=== PATIENT | male | born 2000 | race Two or more races ===

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

== ENCOUNTER 2023-04-18 20:28 | Inpatient (IN) | payer MEDICAID ==
[~2023-04-18] VITALS: Ht 172.7 cm; Wt 74.0 kg
[2023-04-18] MEDS ORDERED: DexAMETHasone SOD PHOS 10MG/1ML VIAL INJ IM ONE (20:45)
[2023-04-18] MEDS ORDERED: ALBUTEROL SULF 2.5 MG/0.5ML(0.5%) NEB SOLN NEB ONE ×3 (20:45→22:15)
[2023-04-18] MEDS ORDERED: IPRATROPIUM BROM 0.5 MG/2.5ML INH SOL NEB ONE ×3 (20:45→22:15)
[2023-04-18] MEDS ORDERED: AZITHROMYCIN 500MG/ 250ML 250 ML IV ONE (21:30)
[2023-04-18] MEDS ORDERED: cefTRIAXone 1GM/50ML D5W 50 ML IV ONE (21:30)
[2023-04-18] MEDS ORDERED: MAGNESIUM SULFATE 1GM/100ML 100 ML IV ONE (21:30)
[2023-04-18] MEDS ORDERED: ALBUTEROL SULF 2.5 MG/0.5ML(0.5%) NEB SOLN ONE (21:52)
[2023-04-18] MEDS ORDERED: IPRATROPIUM BROM 0.5 MG/2.5ML INH SOL ONE (21:53)
[2023-04-18] MEDS ORDERED: diphenhdrAMINE HCL 50 MG/1 ML VL IV ONE (22:00)
[2023-04-18 22:08] LABS: Hemoglobin 17.5 g/dL (13.5-17.5); Mean Corpuscular Hemoglobin 30.8 pg (28.0-32.0); Mean Corpuscular Hgb Conc. 33.6 g/dL (32.0-36.0); Mean Corpuscular Volume 91.7 fL (80.0-100.0); Red Blood Cells 5.67 10^6/uL (4.5-5.90); Red Cell Distribution Width 13.5 % (11.8-14.3); White Blood Cell 14.4 10^3/uL (4.4-10.8)
[2023-04-18 22:09] VITALS: PULSE 119; RESP 22; O2SAT 100
[2023-04-18 22:14] LABS: Alanine Aminotransferase 27 U/L (7-40); Albumin 5.1 g/dL (3.2-4.8); Alkaline Phosphatase 84 U/L (46-116); Anion Gap 7 (5-15); Aspartate Aminotransferase 25 U/L (13-40); BUN/Creatinine Ratio 8.3 (10.0-20.0); Blood Urea Nitrogen 9 mg/dL (9-23); Calcium 9.6 mg/dL (8.5-10.1); Carbon Dioxide 25 mmol/L (20-30); Chloride 109 mmol/L (98-107); Glucose 93 mg/dL (74-106); Potassium 4.7 mmol/L (3.5-5.1); Sodium 141 mmol/L (136-145)
[2023-04-18 22:15] LABS: Total Protein 8.3 g/dL (5.7-8.2)
[2023-04-18 22:20] LABS: Band Neutrophils % (manual) 0; Basophils % (manual) 0 (0.0-2.0); Blast Cells 0; Metamyelocytes % 0; Myelocytes % 0; Promyelocytes % 0; Reactive Lymphocytes 0
[2023-04-18 22:21] LABS: Base Excess -6.2 mmol/L (-2.0-2.0)
[2023-04-18 22:35] LABS: Eosinophils % (manual) 18 (0-7); Lymphocytes % (manual) 22 (10.0-50.0); Monocytes % (manual) 5 (0-12); Platelet Estimate Adequate; RBC Morphology Normal
[2023-04-19] VITALS (7 sets, daily range): BP systolic 135–168; BP diastolic 83–88; PULSE 67–112; RESP 16–24; TEMP 97.8–98.2; O2SAT 94–100
[2023-04-19] MEDS ORDERED: ACETAMINOPHEN 325 MG TAB PO PRN (00:15)
[2023-04-19] MEDS ORDERED: HYDROcodone-ACET 5/325MG TAB PO PRN (00:15)
[2023-04-19] MEDS ORDERED: NITROGLYCERIN 0.4 MG SL TAB SL PRN (00:15)
[2023-04-19] MEDS ORDERED: ONDANSETRON HCL 4 MG/2 ML VIAL IV PRN (00:15)
[2023-04-19] MEDS ORDERED: DOCUSATE SOD 100 MG CAP PO PRN (00:15)
[2023-04-19] MEDS ORDERED: MORPHINE SULFATE INJ 2 MG/ml SYRG IV PRN (00:15)
[2023-04-19] MEDS: SODIUM CHLOR 0.9% PF (SALINE LOCK) 10ML VIAL/SYR IV SCH ×3 (05:26→21:55)
[2023-04-19 05:34] LABS: Basophils # (auto) 0 10 ^3/uL (0-0.2); Basophils % (auto) 0.1 % (0.0-2.0); Eosinophils # (auto) 0 10 ^3/uL (0-0.8); Eosinophils % (auto) 0.1 % (0.0-7.0); Hematocrit 47.1 % (41.0-53.0); Hemoglobin 16.5 g/dL (13.5-17.5); Lymphocytes # (auto) 0.6 10 ^3/uL (0.4-5.4); Lymphocytes % (auto) 9.8 % (10.0-50.0); Mean Corpuscular Hemoglobin 31.8 pg (28.0-32.0); Mean Corpuscular Hgb Conc. 35.1 g/dL (32.0-36.0); Mean Corpuscular Volume 90.5 fL (80.0-100.0); Monocytes # (auto) 0.1 10 ^3/uL (0-1.3); Monocytes % (auto) 1.1 % (0.0-12.0); Neutrophils # (auto) 5.5 10 ^3/uL (1.6-8.6); Neutrophils % (auto) 88.9 % (37.0-80.0); Red Cell Distribution Width 13.5 % (11.8-14.3); White Blood Cell 6.2 10^3/uL (4.4-10.8)
[2023-04-19 05:37] LABS: Alanine Aminotransferase 24 U/L (7-40); Albumin 4.9 g/dL (3.2-4.8); Alkaline Phosphatase 79 U/L (46-116); Anion Gap 10 (5-15); Aspartate Aminotransferase 22 U/L (13-40); BUN/Creatinine Ratio 10.4 (10.0-20.0); Bilirubin, Total 0.6 mg/dL (0.2-1.0); Blood Urea Nitrogen 11 mg/dL (9-23); Calcium 9.5 mg/dL (8.7-10.4); Carbon Dioxide 24 mmol/L (20-30); Chloride 106 mmol/L (98-107); Glucose 188 mg/dL (74-106); Potassium 4.2 mmol/L (3.5-5.1); Sodium 140 mmol/L (136-145); Total Protein 7.8 g/dL (5.7-8.2)
[2023-04-19] MEDS ORDERED: cefTRIAXone 1GM/50ML D5W 50 ML IV SCH (09:00)
[2023-04-19] MEDS ORDERED: FAMOTIDINE (10MG/ML) 2ML VL IV SCH (10:00)
[2023-04-19] MEDS ORDERED: DexAMETHasone SOD PHOS 10MG/1ML VIAL INJ IV SCH (10:00)
[2023-04-19] MEDS ORDERED: AZITHROMYCIN 500MG/ 250ML 250 ML IV SCH (10:00)
[2023-04-19] MEDS ORDERED: methylPREDNISolone SOD SUCC 40 MG/ML VL IM ONE (12:00)
[2023-04-19] MEDS ORDERED: IOHEXOL 300 MG/ML 100ML BOTTLE IJ ONE (12:21)
[2023-04-19] MEDS: IPRATROPIUM BROM 0.5 MG/2.5ML INH SOL NEB PRN (19:00)
[2023-04-19] MEDS: ALBUTEROL SULF 2.5 MG/0.5ML(0.5%) NEB SOLN NEB PRN (19:00)
[2023-04-19] MEDS: methylPREDNISolone SOD SUCC 40 MG/ML VL IV SCH (22:02)
[2023-04-20] MEDS ORDERED: ALBUAER3 IN ×2 (00:30→11:28)
[2023-04-20 05:00] VITALS: BP 125/71; PULSE 84; RESP 16; TEMP 97.9; O2SAT 94
[2023-04-20 05:41] LABS: Basophils # (auto) 0 10 ^3/uL (0-0.2); Basophils % (auto) 0.1 % (0.0-2.0); Eosinophils # (auto) 0 10 ^3/uL (0-0.8); Hematocrit 51.6 % (41.0-53.0); Hemoglobin 17.6 g/dL (13.5-17.5); Lymphocytes # (auto) 1.2 10 ^3/uL (0.4-5.4); Lymphocytes % (auto) 6.9 % (10.0-50.0); Mean Corpuscular Hemoglobin 31.4 pg (28.0-32.0); Mean Corpuscular Hgb Conc. 34.1 g/dL (32.0-36.0); Mean Corpuscular Volume 92.2 fL (80.0-100.0); Monocytes # (auto) 0.6 10 ^3/uL (0-1.3); Monocytes % (auto) 3.5 % (0.0-12.0); Neutrophils # (auto) 15.9 10 ^3/uL (1.6-8.6); Neutrophils % (auto) 89.5 % (37.0-80.0); Red Blood Cells 5.59 10^6/uL (4.5-5.90); Red Cell Distribution Width 13.2 % (11.8-14.3); White Blood Cell 17.7 10^3/uL (4.4-10.8)
[2023-04-20] MEDS: SODIUM CHLOR 0.9% PF (SALINE LOCK) 10ML VIAL/SYR IV SCH (05:59)
[2023-04-20 06:29] LABS: Alanine Aminotransferase 22 U/L (7-40); Albumin 5.1 g/dL (3.2-4.8); Alkaline Phosphatase 87 U/L (46-116); Anion Gap 11 (5-15); Aspartate Aminotransferase 27 U/L (13-40); BUN/Creatinine Ratio 9.2 (10.0-20.0); Bilirubin, Total 0.7 mg/dL (0.2-1.0); Blood Urea Nitrogen 9 mg/dL (9-23); Calcium 9.7 mg/dL (8.7-10.4); Carbon Dioxide 20 mmol/L (20-30); Chloride 105 mmol/L (98-107); Glucose 134 mg/dL (74-106); Sodium 136 mmol/L (136-145); Total Protein 8.3 g/dL (5.7-8.2)
[2023-04-20] MEDS: ALBUTEROL SULF 2.5 MG/0.5ML(0.5%) NEB SOLN NEB PRN (06:44)
[2023-04-20] MEDS: IPRATROPIUM BROM 0.5 MG/2.5ML INH SOL NEB PRN (06:44)
[2023-04-20 06:49] VITALS: PULSE 90; RESP 16; O2SAT 88
[2023-04-20 06:59] VITALS: PULSE 87; RESP 16; O2SAT 94
[2023-04-20 08:00] VITALS: PULSE 77; RESP 18; O2SAT 99
[2023-04-20 10:00] VITALS: O2SAT 98
[2023-04-20] MEDS: methylPREDNISolone SOD SUCC 40 MG/ML VL IV SCH (10:13)
[2023-04-20] MEDS ORDERED: METH4PAK PO (11:28)
[2023-04-20] MEDS ORDERED: AZITTAB PO (11:28)
[2023-04-20 11:44] VITALS: TEMP 36.6
== END 2023-04-20 12:32 | disposition home or self-care (01) | DRG 133 ==
LOC: ER 20:30 → TELE 04-19 00:20 → TELE-WESTW 04-19 23:30
PROVIDERS: ADMIT Nurse Practitioner Family; ATTEND Internal Medicine Pulmonary Disease
DX: J96.01 Acute respiratory failure with hypoxia (principal); J45.901 Unspecified asthma with (acute) exacerbation; F17.200 Nicotine dependence, unspecified, uncomplicated; Z91.010 Allergy to peanuts; Z91.199 Patient's noncompliance with other medical treatment and regimen due to unspecified reason; D72.829 Elevated white blood cell count, unspecified
CPT/HCPCS: 36415; 36600; 71045; 71260; 80053; 82805; 85007; 85025; 85027; 85379; 94640; 96365; 96372; 99291; G0378; J0696; J1100; J3490

== ENCOUNTER 2023-05-22 20:52 | Emergency (ER) | payer MEDICAID ==
[~2023-05-22] VITALS: Ht 172.7 cm; Wt 79.0 kg
[~2023-05-22 20:52] MED LIST: ALBUAER3 IN; AZITTAB PO; METH4PAK PO
[2023-05-22] MEDS ORDERED: DexAMETHasone SOD PHOS 10MG/1ML VIAL INJ IM ONE (21:15)
[2023-05-22] MEDS ORDERED: ALBUTEROL MEDNEB 2.5 mg/3ml NEB NEB ONE (21:15)
[2023-05-22] MEDS ORDERED: IPRATROPIUM BROM 0.5 MG/2.5ML INH SOL NEB ONE (21:15)
[2023-05-22 22:06] LABS: Basophils # (auto) 0 10 ^3/uL (0-0.2); Basophils % (auto) 0.1 % (0.0-2.0); Eosinophils # (auto) 0.5 10 ^3/uL (0-0.8); Hematocrit 49.4 % (41.0-53.0); Hemoglobin 16.6 g/dL (13.5-17.5); Lymphocytes # (auto) 0.9 10 ^3/uL (0.4-5.4); Lymphocytes % (auto) 5.6 % (10.0-50.0); Mean Corpuscular Hemoglobin 30.8 pg (28.0-32.0); Mean Corpuscular Hgb Conc. 33.7 g/dL (32.0-36.0); Mean Corpuscular Volume 91.5 fL (80.0-100.0); Monocytes # (auto) 0.9 10 ^3/uL (0-1.3); Monocytes % (auto) 5.7 % (0.0-12.0); Neutrophils # (auto) 13.5 10 ^3/uL (1.6-8.6); Neutrophils % (auto) 85.6 % (37.0-80.0); Nucleated Red Blood Cells % 0.1 %; Red Cell Distribution Width 13.3 % (11.8-14.3); White Blood Cell 15.8 10^3/uL (4.4-10.8)
[2023-05-22 22:07] LABS: Alanine Aminotransferase 27 U/L (7-40); Albumin 4.9 g/dL (3.2-4.8); Alkaline Phosphatase 75 U/L (46-116); Anion Gap 8 (5-15); Aspartate Aminotransferase 29 U/L (13-40); BUN/Creatinine Ratio 7.4 (10.0-20.0); Bilirubin, Total 0.7 mg/dL (0.2-1.0); Blood Urea Nitrogen 7 mg/dL (9-23); Carbon Dioxide 24 mmol/L (20-30); Chloride 110 mmol/L (98-107); Glucose 101 mg/dL (74-106); Sodium 142 mmol/L (136-145); Total Protein 7.6 g/dL (5.7-8.2)
[2023-05-22 22:08] LABS: COVID19 ANTIGEN SOFIA FIA NEGATIVE (NEGATIVE); Rapid Influenza A Negative (Negative); Rapid Influenza B Negative (Negative)
[2023-05-23 01:25] VITALS: BP 148/95; PULSE 114; RESP 19; TEMP 98.3
[2023-05-23 01:32] VITALS: O2SAT 94
[2023-05-23] MEDS ORDERED: AZITTAB PO (01:47)
[2023-05-23] MEDS ORDERED: METH4PAK PO (01:47)
[2023-05-23] MEDS ORDERED: ALBUAER3 IN (01:47)
== END 2023-05-23 02:02 | disposition home or self-care (01) ==
LOC: ER 20:52
DX: J45.901 Unspecified asthma with (acute) exacerbation (principal); D72.829 Elevated white blood cell count, unspecified; R06.03 Acute respiratory distress; R07.89 Other chest pain; Z79.2 Long term (current) use of antibiotics; Z79.899 Other long term (current) drug therapy; Z91.010 Allergy to peanuts; Z20.822 Contact with and (suspected) exposure to COVID-19
CPT/HCPCS: 36415; 71045; 80053; 83735; 84484; 85025; 87426; 87804; 94640; 96372; 99285; J1100; J7644

== ENCOUNTER 2025-04-18 19:13 | Inpatient (IN) | payer MEDICAID ==
[~2025-04-18] VITALS: Ht 170.2 cm; Wt 80.9 kg
--- NOTE | 2025-04-18 19:48 | ECG ---
[facility] Test Date: 2025-04-18 Test Time: 19:17:27 Pat Name: STEPHEN DENNIS Department: ED Room: [address] [place] [address] Gender: M Yam Curer: jodi : 2000 Requested By: OLGA CEBALLOS Order Number: [id number] Reading MD: Gilberto Mauro Measurements Intervals [place] Rate: 127 P: 84 [place]: 151 QRS: 85 QRSD: 88 T: -13 QT: 299 QTc: 435 Interpretive Statements Sinus tachycardia Borderline low voltage, extremity leads Artifact in lead(s) I,II,III,aVR,aVL,aVF,V1,V3,V4,V5,V6 Electronically Signed On 04-20-2025 15:08:53 PDT by Gilberto Mauro Please click the below link to view image of tracing.
[2025-04-18] MEDS: IPRATROPIUM BROM 0.5 MG/2.5ML INH SOL NEB ONE (20:01)
[2025-04-18] MEDS: ALBUTEROL SULF 2.5 MG/0.5ML(0.5%) NEB SOLN NEB ONE (20:01)
[2025-04-18] MEDS: MAGNESIUM SULFATE 1GM/100ML 100 ML IV SCH (20:09)
[2025-04-18] MEDS: SODIUM CHLORIDE 0.9% 1,000 ML IVB ONE (20:09)
[2025-04-18] MEDS: predniSONE 20 MG TAB PO ONE (20:10)
[2025-04-18 20:15] LABS: Alanine Aminotransferase 39 U/L (7-40); Alkaline Phosphatase 97 U/L (46-116); Anion Gap 9 (5-15); BUN/Creatinine Ratio 15.3 (10.0-20.0); Bilirubin, Total 0.6 mg/dL (0.2-1.0); Blood Urea Nitrogen 15 mg/dL (9-23); Calcium 9.0 mg/dL (8.7-10.4); Carbon Dioxide 23 mmol/L (20-31); Magnesium 1.9 mg/dL (1.6-2.6); Potassium 4.2 mmol/L (3.5-5.1); Sodium 142 mmol/L (136-145); Total Protein 7.4 g/dL (5.7-8.2)
[2025-04-18 20:20] VITALS: PULSE 131; RESP 25; O2SAT 94
[2025-04-18 20:20] LABS: Albumin 4.8 g/dL (3.2-4.8); Chloride 110 mmol/L (98-107); Glucose 106 mg/dL (74-106)
--- NOTE | 2025-04-18 20:38 | ED.PDOC ---
History of Present Illness HPI Comments 24 y/o M, with a Hx of asthma, presents with c/c of shortness of breath and wheezing. Patient reports onset of symptoms, yesterday and today. He reports on his breathing treatment working yesterday but not today, while dinning, this evening. Denies any chest pain, cough, congestion, fever, chills, or further associated symptoms. Chief Complaint: Shortness of breath Time Seen by MD: 19:30 Primary Care Provider: UNK Reviewed Notes: Nurses Notes, Medications, Allergies Allergies: Coded Allergies: Peanut-containing Drug Products (Verified Allergy, Unknown, 04/18/23) Home Meds Active Scripts Albuterol Sulfate (VENTOLIN MDI) 90 Mcg Ih, 90 MCG IN Q6HP PRN, #120 INH Prov:HERMINIA COLLAZOO [facility] 05/23/23 Azithromycin (Zithromax Z-Tavares) 250 Mg Tab, 250 MG PO DAILY, #6 TAB Prov:HERMINIA COLLAZOO [facility] 05/23/23 Methylprednisolone (Medrol Dosepak) 4 Mg Tavares, 4 MG PO UD, #21 TAB UAD Prov:HERMINIA COLLAZOO [facility] 05/23/23 Reported Medications Albuterol Sulfate (VENTOLIN MDI) 90 Mcg Ih, 90 MCG IN, INH 04/20/23 Information Source: Patient Mode of Arrival: Ambulatory Severity: Moderate Timing: Days Duration: Intermittent Prehospital treatment: Breathing Tx Past Medical History PAST MEDICAL HISTORY: Asthma Surgical History: Denies all surgeries Family History Family History: Reviewed,noncontributory to illness, Unknown Social History Smoker: Other (nicotine vape ) Alcohol: Occasionally Drugs: Marijuana Lives In: Home All Other Systems: Reviewed and Negative (Comprehensive review of systems are negative unless stated in HPI) Physical Exam General Appearance: No Apparent Distress, Normal HEENT: Normal ENT Inspection, Pharynx Normal, TMs Normal Neck: Full Range of Motion, Non-Tender, Normal, Normal Inspection Respiratory: Chest Non-Tender, No Accessory Muscle Use, Respiratory Distress (moderate ), Wheezing (scattered, bilaterally ) Cardiovascular: No Edema, No JVD, No Murmur, No Gallop, Normal Peripheral Pulses, Regular Rate/Rhythm Breast Exam: Deferred Gastrointestinal: No Organomegaly, Non Tender, No Pulsatile Mass, Normal Bowel Sounds, Soft Genitalia: Deferred Pelvic: Deferred Rectal: Deferred Extremities: No calf tenderness, Normal capillary refill, Normal inspection, Normal range of motion, Non-tender, No pedal edema Musculoskeletal : Apperance: Normal Neurologic: Alert, potato picker II-XII nml as Tested, No Motor Deficits, Normal Affect, Normal Mood, No Sensory Deficits Cerebellar Function: Normal Reflexes: Normal Skin: Dry, Normal Color, Warm Lymphatic: No Adenopathy Was a procedure done? Was a procedure done?: No EKG EKG : Pulse Rate (adult): 127 [place]: Normal Cardiac Rhythm: ST Block: None Hypertrophy: None ST: Normal Differential Dx Considerations may include: asthma exacerbation, URI, PNA, bronchitis, among others X-Ray, Labs, Meds, VS Vital Signs Date Time Temp Pulse Resp B/P (MAP) Pulse Ox O2 Delivery O2 Flow Rate FiO2 04/18/25 22:16 113 04/18/25 20:38 127 04/18/25 20:20 131 25 94 Nasal Cannula* 3 32 04/18/25 20:20 25 94 Nasal Cannula* 3 32 04/18/25 20:20 98.0 131 25 150/94 (112) 94 98.0 04/18/25 20:10 132 04/18/25 20:01 28 96 Nasal Cannula* 2 28 04/18/25 19:18 98.0 134 20 186/113 92 98.0 04/18/25 19:17 127 Lab Test 04/18/25 19:49 04/18/25 19:47 Range/Units Blood Gas Specimen Type Venous Blood Gas Sample Site Other Blood Gas Patient Temperature 37.0 Arterial Blood Date Drawn [id number] Sha Test N/a Venous Blood pH 7.325 7.320-7.430 Venous Blood pCO2 at Patient Temp 44.1 38.0-54.0 mmHg Venous Blood pO2 at Patient Temp < 36.5 23.0-48.0 mmHg Venous Blood HCO3 22.5 22.0-29.0 mmol/L Venous Blood Base Excess -3.6 L -2.0-3.0 mmol/L Blood Gas Liter Flow 0.00 Blood Gas Modality Room air Blood Gas Spontaneous Rate 22 FiO2 % 21.0 Specimen Drawn By White Blood Count 15.0 H 4.4-10.8 10^3/uL Red Blood Count 5.53 4.5-5.90 10^6/uL Hemoglobin 17.3 13.5-17.5 g/dL Hematocrit 49.1 41.0-53.0 % Mean Corpuscular Volume 88.8 80.0-100.0 fL Mean Corpuscular Hemoglobin 31.3 28.0-32.0 pg Mean Corpuscular Hemoglobin Concent 35.2 32.0-36.0 g/dL Red Cell Distribution Width 12.8 11.8-14.3 % Platelet Count 229 140-450 10^3/uL Mean Platelet Volume 8.6 6.9-10.8 fL Neutrophils (%) (Auto) 62.9 37.0-80.0 % Lymphocytes (%) (Auto) 15.5 10.0-50.0 % Monocytes (%) (Auto) 6.2 0.0-12.0 % Eosinophils (%) (Auto) 14.8 H 0.0-7.0 % Basophils (%) (Auto) 0.6 0.0-2.0 % Neutrophils # (Auto) 9.4 H 1.6-8.6 10 ^3/uL Lymphocytes # (Auto) 2.3 0.4-5.4 10 ^3/uL Monocytes # (Auto) 0.9 0-1.3 10 ^3/uL Eosinophils # (Auto) 2.2 H 0-0.8 10 ^3/uL Basophils # (Auto) 0.1 0-0.2 10 ^3/uL Nucleated Red Blood Cells 0.8 % Sodium Level 142 136-145 mmol/L Potassium Level 4.2 3.5-5.1 mmol/L Chloride Level 110 H 98-107 mmol/L Carbon Dioxide Level 23 20-31 mmol/L Anion Gap 9 5-15 Blood Urea Nitrogen 15 9-23 mg/dL Creatinine 0.98 0.700-1.30 mg/dL Glomerular Filtration Rate Calc 110 >90 mL/min BUN/Creatinine Ratio 15.3 10.0-20.0 Serum Glucose 106 74-106 mg/dL Calcium Level 9.0 8.7-10.4 mg/dL Magnesium Level 1.9 1.6-2.6 mg/dL Total Bilirubin 0.6 0.2-1.0 mg/dL Aspartate Amino Transferase (AST) 42 H 13-40 U/L Alanine Aminotransferase (ALT) 39 7-40 U/L Alkaline Phosphatase 97 46-116 U/L B-Type Natriuretic Peptide 4.46 0-100 pg/mL Total Protein 7.4 5.7-8.2 g/dL Albumin 4.8 3.2-4.8 g/dL Current Medications Medications (Trade) Dose Ordered Sig/Padma Route Start Time Stop Time Status Last Admin Sodium Chloride 1,000 ml @ 1,000 mls/hr Q1H ONCE IVB 04/18/25 19:45 04/18/25 20:44 DC 04/18/25 20:09 Albuterol (Ventolin Medneb) 5 mg ONCE ONCE NEB 04/18/25 19:45 04/18/25 19:46 DC 04/18/25 20:01 Ipratropium [place] (Atrovent Medneb) 0.5 mg ONCE ONCE NEB 04/18/25 19:45 04/18/25 19:46 DC 04/18/25 20:01 Prednisone 40 mg ONCE ONCE PO 04/18/25 19:45 04/18/25 19:46 DC 04/18/25 20:10 Magnesium Sulfate/ Dextrose 100 ml @ 100 mls/hr Q1H IV 04/18/25 19:45 04/18/25 21:44 DC 04/18/25 21:14 Time of 1ST Reevaluation: 20:00 Reevaluation 1ST: Unchanged Patient Education/Counseling: Diagnosis, Treatment, Need For Follow Up Family Education/Counseling: No Family Present SEPSIS Sepsis Screen Date sepsis recognized/suspect: Apr 18, 2025 Time Sepsis recognized/suspect: 1921 Recent Procedure: No On Antibiotic Therapy: No Respiratory Rate >20: No Heart Rate >90: Yes Temp<36 C (96.8 F) or >38.3 C: No SBP <90 or MAP <65 mmHG: No New Acute Mental Status Change: No Is the patient on CPAP, BIPAP,: No Physician Orders Chest Portable (04/18/25 19:36) Venous Blood Gas (04/18/25 19:36) Electrocardigram (04/18/25 20:46) Electrocardigram (04/18/25 22:46) Vital Signs Date Time Temp Pulse Resp B/P (MAP) Pulse Ox O2 Delivery O2 Flow Rate FiO2 04/18/25 22:16 113 04/18/25 20:38 127 04/18/25 20:20 131 25 94 Nasal Cannula* 3 32 04/18/25 20:20 25 94 Nasal Cannula* 3 32 04/18/25 20:20 98.0 131 25 150/94 (112) 94 98.0 04/18/25 20:10 132 04/18/25 20:01 28 96 Nasal Cannula* 2 28 04/18/25 19:18 98.0 134 20 186/113 92 98.0 04/18/25 19:17 127 Laboratory Tests Test 04/18/25 19:47 White Blood Count 15.0 10^3/uL (4.4-10.8) H Medications Medications Dose Ordered Sig/Padma Route Start Time Stop Time Status Last Admin Dose Admin Albuterol 5 mg ONCE ONCE NEB 04/18/25 19:45 04/18/25 19:46 DC 04/18/25 20:01 Ipratropium [place] 0.5 mg ONCE ONCE NEB 04/18/25 19:45 04/18/25 19:46 DC 04/18/25 20:01 Magnesium Sulfate/ Dextrose 100 ml @ 100 mls/hr Q1H IV 04/18/25 19:45 04/18/25 21:44 DC 04/18/25 21:14 Prednisone 40 mg ONCE ONCE PO 04/18/25 19:45 04/18/25 19:46 DC 04/18/25 20:10 Sodium Chloride 1,000 ml @ 1,000 mls/hr Q1H ONCE IVB 04/18/25 19:45 04/18/25 20:44 DC 04/18/25 20:09 Departure 1 Departure Time of Disposition: 22:26 Impression: Primary Impression: Asthma exacerbation Additional Impression: Respiratory failure with hypoxia Disposition: ADMITTED INPATIENT Admit to: Med Surg Condition: Guarded Discharged With: Self Comments 24-year-old male still feels short of breath at the a breathing treatment and prednisone and magnesium. Patient has a history of asthma. I suspect recurrent asthma exacerbation but patient is not improved on re-evaluation. Patient will need to be admitted for supportive care and further workup. Critical Care Note Critical Care Time?: Yes (35 min-critical care time only) Critical care comment: Total critical care time: Approximately 36 minutes Due to a high probability of clinically significant, life threatening deterioration, the patient required my highest level of preparedness to intervene emergently and I personally spent this critical care time directly and personally managing the patient. This critical care time included obtaining a history; examining the patient; pulse oximetry; ordering and review of studies; arranging urgent treatment with development of a management plan; evaluation of patient's response to treatment; frequent reassessment; and, discussions with other providers. This critical care time was performed to assess and manage the high probability of imminent, life-threatening deterioration that could result in multi-organ failure. It was exclusive of separately billable procedures and treating other patients. Stability Stability form required: No Heart Score Heart Score: Heart Score Response (Comments) Value History Slightly Suspicious 0 EKG Normal 0 Age <45 0 Risk Factors No known risk factors 0 Troponin Normal limit 0 Total 0 I personally scribed for OLGA CEBALLOS MD ([email or web address]) on 04/18/25 at 20:38. Electronically submitted by Ilan Reyes ([email or web address]). OLGA CEBALLOS MD Apr 18, 2025 20:38
[2025-04-18 20:42] LABS: Hematocrit 49.1 % (41.0-53.0); Hemoglobin 17.3 g/dL (13.5-17.5); Mean Corpuscular Hemoglobin 31.3 pg (28.0-32.0); Mean Corpuscular Volume 88.8 fL (80.0-100.0); Nucleated Red Blood Cells % 0.8 %
--- NOTE | 2025-04-18 20:48 | DVH ---
CHEST RADIOGRAPH Indication: SOB Technique: Single frontal view of the chest was obtained Comparison: XY CHEST PORTABLE on DOS: 05/22/23, XY CHEST XRAY 1 VIEW on DOS: 04/18/23 FINDINGS: Lines and Tubes: None Lungs: No focal consolidation. Pleura: No effusion. No pneumothorax. Cardiomediastinal contours: Unremarkable Bones: No acute osseous abnormality. IMPRESSION: 1. No acute cardiopulmonary disease. 2. No significant change from 05/22 2023
[2025-04-18] MEDS ORDERED: MORPHINE SULFATE INJ 2 MG/ml SYRG IV PRN (22:45)
[2025-04-18] MEDS ORDERED: NITROGLYCERIN 0.4 MG SL TAB SL PRN (22:45)
[2025-04-18] MEDS ORDERED: ONDANSETRON HCL 4 MG/2 ML VIAL IV PRN (22:45)
[2025-04-18] MEDS ORDERED: ACETAMINOPHEN 325 MG TAB PO PRN (22:45)
[2025-04-18 23:49] VITALS: BP 144/54; PULSE 103; RESP 20; TEMP 98; O2SAT 95
[2025-04-19] VITALS (13 sets, daily range): BP systolic 144–155; BP diastolic 90–95; PULSE 71–103; RESP 16–25; TEMP 97.7–98.6; O2SAT 92–100
[2025-04-19] MEDS: IPRATROPIUM BROM 0.5 MG/2.5ML INH SOL NEB PRN (00:50)
[2025-04-19] MEDS: ALBUTEROL SULF 2.5 MG/0.5ML(0.5%) NEB SOLN NEB PRN (00:50)
--- NOTE | 2025-04-19 04:50 | ECG ---
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
--- NOTE | 2025-04-19 04:50 | ECG ---
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
--- NOTE | 2025-04-19 05:07 | DVHHP2 ---
History of Present Illness Reason for Visit: Shortness for breath History of Present Illness 24-year-old male presents for evaluation of shortness for breath. Patient with a history of asthma reports a one day history of worsening shortness for breath with wheezing not being relieved by his inhaler and nebulizer at home. Denies cough or fever. No other acute complaints Past Medical History Asthma Past Surgical History Denies Family History Noncontributory Smoke: <1 pack per day (Vape) ALCOHOL: occassional Drugs: Marijuana Lives: with Family Review of Systems Review of Systems Review of systems are currently negative otherwise addressed in HPI. Allergies: Coded Allergies: Peanut-containing Drug Products (Verified Allergy, Unknown, 04/18/23) Medications Current Medications Medications Dose Ordered Sig/Padma Route Start Time Stop Time Status Last Admin Dose Admin Albuterol 2.5 mg Q6HPRN PRN NEB 04/18/25 22:45 04/19/25 00:50 2.5 MG Ipratropium [place] 0.5 mg Q6HPRN PRN NEB 04/18/25 22:45 04/19/25 00:50 0.5 MG Methylprednisolone Sodium Succinate 40 mg BID IV 04/19/25 10:00 Ondansetron HCl 4 mg Q4HP PRN IV 04/18/25 22:45 Acetaminophen 650 mg Q6HP PRN PO 04/18/25 22:45 Nitroglycerin 0.4 mg Q5MINP PRN SL 04/18/25 22:45 Morphine Sulfate 2 mg Q30M PRN IV 04/18/25 22:45 Exam Vital Signs Vital Signs Date Time Temp Pulse Resp B/P (MAP) Pulse Ox O2 Delivery O2 Flow Rate FiO2 04/19/25 00:59 97 Nasal Cannula 2.0 04/19/25 00:59 28 04/19/25 00:56 101 20 04/18/25 23:49 98.0 144/54 98.0 Exam Gen: 24-year-old male in mild distress Skin: Warm, dry, normal color and texture, no rash. HEENT: Normocephalic atraumatic, mucous membranes moist and pink. Neck: Cervical and supraclavicular nodes normal without enlargement, trachea is midline, thyroid gland is normal without masses. Pulmonary: Bilateral wheeze Cardiac: Regular rate and rhythm. No murmur Abdomen: Soft, nontender, nondistended, bowel sounds present all 4 quadrants, no guarding, no rigidity, no organomegaly. Extremities: No cyanosis, clubbing, no edema Neuro: Cranial nerves II through XII grossly intact, normal affect and speech, no focal motor deficits. Labs/Xrays ORDERING PHYSICIAN: OLGA CEBALLOS MD PROCEDURE(s): CXRP - CHEST PORTABLE REASON: SOB ORDER NUMBER(s): [id number], ACCESSION NUMBER(s): [id number] CHEST RADIOGRAPH Indication: SOB Technique: Single frontal view of the chest was obtained Comparison: XY CHEST PORTABLE on DOS: 05/22/23, XY CHEST XRAY 1 VIEW on DOS: 04/18/23 FINDINGS: Lines and Tubes: None Lungs: No focal consolidation. Pleura: No effusion. No pneumothorax. Cardiomediastinal contours: Unremarkable Bones: No acute osseous abnormality. IMPRESSION: 1. No acute cardiopulmonary disease. 2. No significant change from 05/22 2023 Labs Test 04/18/25 19:49 04/18/25 19:47 Range/Units Blood Gas Specimen Type Venous Blood Gas Sample Site Other Blood Gas Patient Temperature 37.0 Arterial Blood Date Drawn [id number] Sha Test N/a Venous Blood pH 7.325 7.320-7.430 Venous Blood pCO2 at Patient Temp 44.1 38.0-54.0 mmHg Venous Blood pO2 at Patient Temp < 36.5 23.0-48.0 mmHg Venous Blood HCO3 22.5 22.0-29.0 mmol/L Venous Blood Base Excess -3.6 L -2.0-3.0 mmol/L Blood Gas Liter Flow 0.00 Blood Gas Modality Room air Blood Gas Spontaneous Rate 22 FiO2 % 21.0 Specimen Drawn By White Blood Count 15.0 H 4.4-10.8 10^3/uL Red Blood Count 5.53 4.5-5.90 10^6/uL Hemoglobin 17.3 13.5-17.5 g/dL Hematocrit 49.1 41.0-53.0 % Mean Corpuscular Volume 88.8 80.0-100.0 fL Mean Corpuscular Hemoglobin 31.3 28.0-32.0 pg Mean Corpuscular Hemoglobin Concent 35.2 32.0-36.0 g/dL Red Cell Distribution Width 12.8 11.8-14.3 % Platelet Count 229 140-450 10^3/uL Mean Platelet Volume 8.6 6.9-10.8 fL Neutrophils (%) (Auto) 62.9 37.0-80.0 % Lymphocytes (%) (Auto) 15.5 10.0-50.0 % Monocytes (%) (Auto) 6.2 0.0-12.0 % Eosinophils (%) (Auto) 14.8 H 0.0-7.0 % Basophils (%) (Auto) 0.6 0.0-2.0 % Neutrophils # (Auto) 9.4 H 1.6-8.6 10 ^3/uL Lymphocytes # (Auto) 2.3 0.4-5.4 10 ^3/uL Monocytes # (Auto) 0.9 0-1.3 10 ^3/uL Eosinophils # (Auto) 2.2 H 0-0.8 10 ^3/uL Basophils # (Auto) 0.1 0-0.2 10 ^3/uL Nucleated Red Blood Cells 0.8 % Sodium Level 142 136-145 mmol/L Potassium Level 4.2 3.5-5.1 mmol/L Chloride Level 110 H 98-107 mmol/L Carbon Dioxide Level 23 20-31 mmol/L Anion Gap 9 5-15 Blood Urea Nitrogen 15 9-23 mg/dL Creatinine 0.98 0.700-1.30 mg/dL Glomerular Filtration Rate Calc 110 >90 mL/min BUN/Creatinine Ratio 15.3 10.0-20.0 Serum Glucose 106 74-106 mg/dL Calcium Level 9.0 8.7-10.4 mg/dL Magnesium Level 1.9 1.6-2.6 mg/dL Total Bilirubin 0.6 0.2-1.0 mg/dL Aspartate Amino Transferase (AST) 42 H 13-40 U/L Alanine Aminotransferase (ALT) 39 7-40 U/L Alkaline Phosphatase 97 46-116 U/L B-Type Natriuretic Peptide 4.46 0-100 pg/mL Total Protein 7.4 5.7-8.2 g/dL Albumin 4.8 3.2-4.8 g/dL SEPSIS Sepsis Screen Date sepsis recognized/suspect: Apr 18, 2025 Time Sepsis recognized/suspect: 1922 Recent Procedure: No On Antibiotic Therapy: No Respiratory Rate >20: No Heart Rate >90: Yes Temp<36 C (96.8 F) or >38.3 C: No SBP <90 or MAP <65 mmHG: No New Acute Mental Status Change: No Is the patient on CPAP, BIPAP,: No Physician Orders Albuterol Medneb (Ventolin Medneb) (04/18/25 22:45) Ipratropium Medneb (Atrovent Medneb) (04/18/25 22:45) Methylprednisolone Sod Succ (Solu Medrol (04/19/25 10:00) Regular Diet (04/19/25 Breakfast) Admit (04/18/25 22:32) Ondansetron Hcl (Zofran) (04/18/25 22:45) Condition: Fair (04/18/25 22:32) Acetaminophen Tablet (Tylenol Tablet) (04/18/25 22:45) Bedrest With Bathroom Privileg (04/18/25 22:32) Nitroglycerin Sublingual (Ntrostat Subli (04/18/25 22:45) Morphine Sulfate Injection (04/18/25 22:45) Stat Ekg For Chest Pain (04/18/25 22:32) Notify Md Of Changes From Base (04/18/25 22:32) Horse Race Starter For 24 Hours (04/18/25 22:32) Emergency Dysrhythmia Protocol (04/18/25 22:32) Rhythm Strips Once Every Shift (04/18/25 22:32) Oxygen By Nasal Cannula (04/18/25 22:32) Vital Signs Date Time Temp Pulse Resp B/P (MAP) Pulse Ox O2 Delivery O2 Flow Rate FiO2 04/19/25 00:59 97 Nasal Cannula 2.0 04/19/25 00:59 97 Nasal Cannula* 2 28 04/19/25 00:56 101 20 100 04/19/25 00:50 98 Nasal Cannula 3.0 04/19/25 00:50 98 Nasal Cannula* 3 32 04/19/25 00:50 103 24 98 04/18/25 23:49 98.0 103 20 144/54 95 2.0 28 98.0 04/18/25 22:59 98.0 103 20 144/54 (84) 95 98.0 04/18/25 22:35 98.0 103 20 144/54 (84) 95 98.0 04/18/25 22:35 20 95 Nasal Cannula* 2 28 04/18/25 22:16 113 Laboratory Tests Test 04/18/25 19:47 White Blood Count 15.0 10^3/uL (4.4-10.8) H Medications Medications Dose Ordered Sig/Padma Route Start Time Stop Time Status Last Admin Dose Admin Albuterol 2.5 mg Q6HPRN PRN NEB 04/18/25 22:45 04/19/25 00:50 2.5 MG Albuterol 5 mg ONCE ONCE NEB 04/18/25 19:45 04/18/25 19:46 DC 04/18/25 20:01 5 MG Ipratropium [place] 0.5 mg ONCE ONCE NEB 04/18/25 19:45 04/18/25 19:46 DC 04/18/25 20:01 0.5 MG Ipratropium [place] 0.5 mg Q6HPRN PRN NEB 04/18/25 22:45 04/19/25 00:50 0.5 MG Magnesium Sulfate/ Dextrose 100 ml @ 100 mls/hr Q1H IV 04/18/25 19:45 04/18/25 21:44 DC 04/18/25 21:14 100 MLS/HR Prednisone 40 mg ONCE ONCE PO 04/18/25 19:45 04/18/25 19:46 DC 04/18/25 20:10 40 MG Sodium Chloride 1,000 ml @ 1,000 mls/hr Q1H ONCE IVB 04/18/25 19:45 04/18/25 20:44 DC 04/18/25 20:09 1,000 MLS/HR Assessment/Plan Assessment/Plan Assessment Acute on chronic hypoxic respiratory failure Asthma exacerbation Plan Admit the patient to telemetry to the hospitalist Med nebs Methylprednisone Continue treatment per orders. Plan discussed with: Patient My Orders Orders - RA DIAZ Procedure Category Date Status Time Albuterol Medneb PHA 04/18/25 In Process (Ventolin Medneb) 22:45 Ipratropium Medneb PHA 04/18/25 In Process (Atrovent Medneb) 22:45 Methylprednisolone PHA 04/19/25 In Process Sod Succ (Solu Medrol 10:00 Regular Diet DIET 04/19/25 Transmitted Breakfast Admit ADMIT 04/18/25 Transmitted 22:32 Ondansetron Hcl PHA 04/18/25 In Process (Zofran) 22:45 Condition: Fair [facility]RYST[facility] 04/18/25 In Process 22:32 Acetaminophen Tablet PHA 04/18/25 In Process (Tylenol Tablet) 22:45 Bedrest With Bathroom [facility]RYSTINA 04/18/25 In Process Privileg 22:32 Nitroglycerin [facility] 04/18/25 In Process Sublingual (Ntrostat 22:45 Morphine Sulfate [facility] 04/18/25 In Process Injection 22:45 Stat Ekg For Chest [facility] 04/18/25 In Process Pain 22:32 Notify Md Of Changes [facility] 04/18/25 In Process From Base 22:32 Horse Race Starter For [facility] 04/18/25 In Process 24 Hours 22:32 Emergency Dysrhythmia [facility] 04/18/25 In Process Protocol 22:32 Rhythm Strips Once [facility] 04/18/25 In Process Every Shift 22:32 Oxygen By Nasal RT 04/18/25 Transmitted Cannula 22:32 Date of Service: Apr 18, 2025 Billing Provider: RA DIAZ Common Visit Codes: [id number] INP/OBS CARE (HIGH) RA DIAZ Apr 19, 2025 05:07
[2025-04-19] MEDS: methylPREDNISolone SOD SUCC 40 MG/ML VL IV SCH ×2 (09:53→18:02)
[2025-04-19] MEDS ORDERED: IPRATROPIUM BROM 0.5 MG/2.5ML INH SOL NEB PRN (13:00)
[2025-04-19] MEDS: IPRATROPIUM BROM 0.5 MG/2.5ML INH SOL NEB SCH (13:05)
[2025-04-19] MEDS: ALBUTEROL SULF 2.5 MG/0.5ML(0.5%) NEB SOLN NEB SCH (13:05)
--- NOTE | 2025-04-19 15:36 | DVHPN2 ---
Reviewed: H&P Changes from previous H/P or p: No Changes General: Per HPI Objective Vitals Vital Signs Date Time Temp Pulse Resp B/P (MAP) Pulse Ox O2 Delivery O2 Flow Rate FiO2 04/19/25 13:11 91 25 96 04/19/25 13:05 Nasal Cannula* 2 28 04/19/25 13:00 97.7 144/91 (108) 97.7 Intake/Output Intake and Output 04/19/25 07:00 Intake Total 1200 ml Balance 1200 ml Intake IV Total 1200 ml Exam Gen: 24-year-old male in mild distress Skin: Warm, dry, normal color and texture, no rash. HEENT: Normocephalic atraumatic, mucous membranes moist and pink. Neck: Cervical and supraclavicular nodes normal without enlargement, trachea is midline, thyroid gland is normal without masses. Pulmonary: Bilateral wheeze Cardiac: Regular rate and rhythm. No murmur Abdomen: Soft, nontender, nondistended, bowel sounds present all 4 quadrants, no guarding, no rigidity, no organomegaly. Extremities: No cyanosis, clubbing, no edema Neuro: Cranial nerves II through XII grossly intact, normal affect and speech, no focal motor deficits. Medications Current Medications Medications Dose Ordered Sig/Padma Route Start Time Stop Time Status Last Admin Dose Admin Ondansetron HCl 4 mg Q4HP PRN IV 04/18/25 22:45 Acetaminophen 650 mg Q6HP PRN PO 04/18/25 22:45 Nitroglycerin 0.4 mg Q5MINP PRN SL 04/18/25 22:45 Morphine Sulfate 2 mg Q30M PRN IV 04/18/25 22:45 Albuterol 2.5 mg Q6H NEB 04/19/25 12:00 04/19/25 13:05 2.5 MG Ipratropium Hutchinson 0.5 mg Q6H NEB 04/19/25 12:00 04/19/25 13:05 0.5 MG Methylprednisolone Sodium Succinate 40 mg Q8HR IV 04/19/25 18:00 Ipratropium Hutchinson 0.25 mg Q2HPRN PRN NEB 04/19/25 13:00 Laboratory Results Laboratory Tests 04/18/25 19:47 Chemistry Test 04/18/25 19:47 Albumin 4.8 g/dL (3.2-4.8) Calcium Level 9.0 mg/dL (8.7-10.4) Magnesium Level 1.9 mg/dL (1.6-2.6) Total Protein 7.4 g/dL (5.7-8.2) Cardiac Markers Test 04/18/25 19:47 B-Type Natriuretic Peptide 4.46 pg/mL (0-100) LFT Test 04/18/25 19:47 Alanine Aminotransferase (ALT) 39 U/L (7-40) Alkaline Phosphatase 97 U/L (46-116) Aspartate Amino Transferase (AST) 42 U/L (13-40) H Total Bilirubin 0.6 mg/dL (0.2-1.0) Blood Gas Results Test 04/18/25 19:49 FiO2 % 21.0 Labs and/or images reviewed: Labs reviewed by me, Image(s) reviewed by me Assessment/Plan Assessment/Plan 24-year-old male w Asthma presents for evaluation of shortness for breath. Patient with a history of asthma reports a one day history of worsening shortness for breath with wheezing not being relieved by his inhaler and nebulizer at home. Denies cough or fever. No other acute complaints Diagnosis: Acute hypoxic respiratory failure Acute asthma exacerbation Food-borne illness possible, scombroid sickness, unable to rule out Plan: Duo nebs scheduled with prn Continue Solu-Medrol IV 40 t.i.d. Continue home meds Oxygen saturation goal SpO2 > 92 Med surge Full code Plan discussed with: Patient My Orders Orders - MARY LEHMAN MD Procedure Category Date Status Time Albuterol Medneb PHA 04/19/25 In Process (Ventolin Medneb) 12:00 Ipratropium Medneb PHA 04/19/25 In Process (Atrovent Medneb) 12:00 Methylprednisolone PHA 04/19/25 In Process Sod Succ (Solu Medrol 18:00 Ipratropium Medneb PHA 04/19/25 In Process (Atrovent Medneb) 13:00 Date of Service: Apr 19, 2025 Billing Provider: MARY LEHMAN MD Common Visit Codes: [id number] INP/OBS CARE(HIGH) MARY LEHMAN MD Apr 19, 2025 15:36
[2025-04-20] VITALS (15 sets, daily range): BP systolic 132–159; BP diastolic 76–91; PULSE 70–122; RESP 16–20; TEMP 97.8–98.7; O2SAT 90–100
[2025-04-20 04:41] LABS: Hematocrit 48.1 % (41.0-53.0); Hemoglobin 17.1 g/dL (13.5-17.5); Mean Corpuscular Hemoglobin 32.9 pg (28.0-32.0); Mean Corpuscular Volume 92.8 fL (80.0-100.0); Nucleated Red Blood Cells % 0.0 %
[2025-04-20 04:52] LABS: Alanine Aminotransferase 29 U/L (7-40); Alkaline Phosphatase 89 U/L (46-116); Anion Gap 13 (5-15); BUN/Creatinine Ratio 8.9 (10.0-20.0); Calcium 9.6 mg/dL (8.7-10.4); Carbon Dioxide 21 mmol/L (20-31); Chloride 107 mmol/L (98-107); Potassium 4.1 mmol/L (3.5-5.1); Sodium 141 mmol/L (136-145); Total Protein 7.8 g/dL (5.7-8.2)
[2025-04-20 04:53] LABS: Bilirubin, Total 0.7 mg/dL (0.2-1.0); Blood Urea Nitrogen 9 mg/dL (9-23); Glucose 137 mg/dL (74-106)
[2025-04-20 04:54] LABS: Albumin 5.0 g/dL (3.2-4.8)
[2025-04-20] MEDS: AZITHROMYCIN 500MG/ 250ML 250 ML IV SCH (12:11)
--- NOTE | 2025-04-20 14:16 | DVHDS2 ---
Discharge Summary Date of Admission Apr 18, 2025 at 22:32 Date of Discharge: Apr 20, 2025 Labs/Diagnostic Data: Laboratory Results Test 04/20/25 03:24 04/18/25 19:49 04/18/25 19:47 White Blood Count 11.2 10^3/uL (4.4-10.8) Red Blood Count 5.19 10^6/uL (4.5-5.90) Hemoglobin 17.1 g/dL (13.5-17.5) Hematocrit 48.1 % (41.0-53.0) Mean Corpuscular Volume 92.8 fL (80.0-100.0) Mean Corpuscular Hemoglobin 32.9 pg (28.0-32.0) Mean Corpuscular Hemoglobin Concent 35.5 g/dL (32.0-36.0) Red Cell Distribution Width 13.2 % (11.8-14.3) Platelet Count 254 10^3/uL (140-450) Mean Platelet Volume 8.7 fL (6.9-10.8) Neutrophils (%) (Auto) 90.9 % (37.0-80.0) Lymphocytes (%) (Auto) 7.2 % (10.0-50.0) Monocytes (%) (Auto) 1.8 % (0.0-12.0) Eosinophils (%) (Auto) 0.1 % (0.0-7.0) Basophils (%) (Auto) 0.0 % (0.0-2.0) Neutrophils # (Auto) 10.2 10 ^3/uL (1.6-8.6) Lymphocytes # (Auto) 0.8 10 ^3/uL (0.4-5.4) Monocytes # (Auto) 0.2 10 ^3/uL (0-1.3) Eosinophils # (Auto) 0 10 ^3/uL (0-0.8) Basophils # (Auto) 0 10 ^3/uL (0-0.2) Nucleated Red Blood Cells 0.0 % Sodium Level 141 mmol/L (136-145) Potassium Level 4.1 mmol/L (3.5-5.1) Chloride Level 107 mmol/L (98-107) Carbon Dioxide Level 21 mmol/L (20-31) Anion Gap 13 (5-15) Blood Urea Nitrogen 9 mg/dL (9-23) Creatinine 1.01 mg/dL (0.700-1.30) Glomerular Filtration Rate Calc 106 mL/min (>90) BUN/Creatinine Ratio 8.9 (10.0-20.0) Serum Glucose 137 mg/dL (74-106) Calcium Level 9.6 mg/dL (8.7-10.4) Total Bilirubin 0.7 mg/dL (0.2-1.0) Aspartate Amino Transferase (AST) 26 U/L (13-40) Alanine Aminotransferase (ALT) 29 U/L (7-40) Alkaline Phosphatase 89 U/L (46-116) Total Protein 7.8 g/dL (5.7-8.2) Albumin 5.0 g/dL (3.2-4.8) Blood Gas Specimen Type Venous Blood Gas Sample Site Other Blood Gas Patient Temperature 37.0 Arterial Blood Date Drawn [id number] Sha Test N/a Venous Blood pH 7.325 (7.320-7.430) Venous Blood pCO2 at Patient Temp 44.1 mmHg (38.0-54.0) Venous Blood pO2 at Patient Temp < 36.5 mmHg (23.0-48.0) Venous Blood HCO3 22.5 mmol/L (22.0-29.0) Venous Blood Base Excess -3.6 mmol/L (-2.0-3.0) Blood Gas Liter Flow 0.00 Blood Gas Modality Room air Blood Gas Spontaneous Rate 22 FiO2 % 21.0 Specimen Drawn By Magnesium Level 1.9 mg/dL (1.6-2.6) B-Type Natriuretic Peptide 4.46 pg/mL (0-100) Other Laboratory Tests 04/20/25 03:24 Brief Hx & Hospital Course: 24-year-old male w Asthma presents for evaluation of shortness for breath. Patient with a history of asthma reports a one day history of worsening shortness for breath with wheezing not being relieved by his inhaler and nebulizer at home. Denies cough or fever. No other acute complaints Diagnosis: Acute hypoxic respiratory failure Acute asthma exacerbation Food-borne illness possible, scombroid sickness, unable to rule out plan: - prednisone 40 mg (2 tablets), once daily for 5 days - continue Advair home inhalers twice daily Continue nebulizers or rescue inhalers as needed Continue other home medications Follow up with primary doctor review discharge Condition at Discharge: Fair Final Diagnosis/Problems List Acute hypoxic respiratory failure Acute asthma exacerbation Food-borne illness possible, scombroid sickness, unable to rule out Discharge Disposition: Home Discharge Instruct/Medications Miscellaneous Medications Albuterol Sulfate (Ventolin Mdi), 90 MCG IN, (Reported) Discharge Statement: "Patient was advised to return to the ER or call 911 if any headaches, dizziness, shortness of breath, chest pain, abdominal pain, bleeding, fevers, or worsening of medical condition. Patient was counseled about treatment plan, medications, possible side effects, patientverbalized understanding. All questions were answered to the best of my ability. This discharge took greater then 30 minutes in planning, reviewing documentation, counseling the patient, and discussing with other team members." ASSESSMENT ASSESSMENT Assessment Date of Service: Apr 20, 2025 Billing Provider: MARY LEHMAN MD Common Visit Codes: [id number] DISCH DAY >30min MARY LEHMAN MD Apr 20, 2025 14:16
[2025-04-20] MEDS ORDERED: PRED20TA2 PO (14:17)
== END 2025-04-20 18:21 | disposition home or self-care (01) | DRG 133 ==
LOC: ER 19:13 → OVERFLOW 22:32 → UNDODISIN 04-20 16:36
PROVIDERS: ADMIT Student in an Organized Health Care Education/Training Program; ATTEND Student in an Organized Health Care Education/Training Program
DX: J96.21 Acute and chronic respiratory failure with hypoxia (principal); R65.11 Systemic inflammatory response syndrome (SIRS) of non-infectious origin with acute organ dysfunction; J45.901 Unspecified asthma with (acute) exacerbation; A05.9 Bacterial foodborne intoxication, unspecified; Z91.010 Allergy to peanuts; F17.290 Nicotine dependence, other tobacco product, uncomplicated; Z79.899 Other long term (current) drug therapy
CPT/HCPCS: 36415; 36600; 71045; 80053; 82805; 83735; 83880; 85025; 93005; 94640; 96365; 99291; G0378